=== PATIENT | male | born 1955 | race Caucasian/White ===

== ENCOUNTER 2017-08-17 10:11 | Day surgery (SDC) | payer BC ==
--- NOTE | 2017-08-17 10:03 | PCM.PREANE ---
Preanesthetic Assessment - Anesthesia/Transfusion/Family Hx Anesthesia History: Prior Anesthesia Without Reaction Family History of Anesthesia Reaction: No Transfusion History: No Prior Transfusion(s) - Review of Systems General: No Symptoms Pulmonary: No Symptoms Cardiovascular: No Symptoms Gastrointestinal: No Symptoms Neurological: No Symptoms Other: Reports: None - Physical Assessment NPO Status Date: 08/16/17 Height: 1.83 m Weight: 118.841 kg ASA Class: 2 Mental Status: Alert & Oriented x3 Airway Class: Mallampati = 2 Dentition: Reports: Normal Dentition ROM/Head Extension: Full Lungs: Clear to Auscultation, Normal Respiratory Effort Cardiovascular: Regular Rate, Regular Rhythm - Allergies Allergies/Adverse Reactions: Allergies Allergy/AdvReac Type Severity Reaction Status Date / Time No Known Allergies Allergy Verified 08/12/17 16:50 - Anesthesia Plan Pre-Op Medication Ordered: None (screening colonoscopy, DM2, denies hx of rheumatic fever) - Acknowledgements Anesthesia Type Planned: MAC Pt an Appropriate Candidate for the Planned Anesthesia: Yes Alternatives and Risks of Anesthesia Discussed w Pt/Guardian: Yes Pt/Guardian Understands and Agrees with Anesthesia Plan: Yes PreAnesthesia Questionnaire HEENT History: Reports: Hard of Hearing, Other (See Below) Other HEENT History: wears glasses, has bilateral hearing aides Cardiovascular History: Reports: High Cholesterol, Other (See Below) Other Cardiovascular History: hx of rheumatic fever Respiratory History: Reports: Sleep Apnea Other Respiratory History: uses CPAP Gastrointestinal History: Reports: Colon Polyp, GERD Genitourinary History: Reports: Other (See Below) Other Genitourinary History: takes Enalapril for kidney protection Musculoskeletal History: Reports: Gout Neurological History: Reports: None Psychiatric History: Reports: Anxiety, OCD Endocrine/Metabolic History: Reports: Diabetes, Type II, Obesity/BMI 30+ Hematologic History: Reports: None Immunologic History: Reports: None Oncologic (Cancer) History: Reports: None Dermatologic History: Reports: Other (See Below) Other Dermatologic History: has calluses on palms of hands and soles of feet - Past Surgical History GI Surgical History: Reports: Colonoscopy - SUBSTANCE USE Smoking Status *Q: Former Smoker Tobacco Use Within Last Twelve Months: No Second Hand Smoke Exposure: No Recreational Drug Use History: No - HOME MEDS Home Medications: Home Meds Aspirin [Cumings Aspirin] 81 mg PO DAILY 07/05/15 [History] Canagliflozin [Invokana] 100 mg PO QAM 07/05/15 [History] Liraglutide [Victoza] 1.2 mg SUBCUT QAM 07/05/15 [History] Omeprazole 20 mg PO DAILY 07/05/15 [History] atorvaSTATin Calcium [Atorvastatin Calcium] 80 mg PO BEDTIME 07/05/15 [History] buPROPion HCl [buPROPion HCl ER] 200 mg PO BID 07/05/15 [History] busPIRone [Buspar] 20 mg PO BID 07/05/15 [History] Enalapril [Vasotec] 5 mg PO DAILY 08/07/15 [History] FLUoxetine [PROzac] 120 mg PO DAILY 08/12/17 [History] OLANZapine [Olanzapine] 10 mg PO DAILY 08/12/17 [History] - CURRENT (IN HOUSE) MEDS Current Meds: Current Medications Lactated Ringer's (Ringers, Lactated) 1,000 mls @ 125 mls/hr IV ASDIRECTED WARREN
[~2017-08-17 10:11] MED LIST: Lactated Ringers 1,000 ML IV SCH
[2017-08-17] MEDS ORDERED: Lidocaine 2% 5 ML SDV ONE (12:02)
[2017-08-17] MEDS ORDERED: Propofol 200 MG/20 ML SDV ONE ×4 (12:02→14:02)
[2017-08-17] MEDS ORDERED: Midazolam 1 MG/ML 2 ML SDV ONE (12:03)
[2017-08-17] MEDS ORDERED: fentaNYL 100 MCG/2 ML SDV ONE ×2 (12:03→13:47)
[2017-08-17] MEDS ORDERED: Ondansetron 4 MG Tab.DIS PO PRN (13:31)
--- NOTE | 2017-08-17 13:35 | PCM.OPNOTE ---
- General Post-Op/Procedure Note Date of Surgery/Procedure: 08/17/17 Operative Procedure(s): Colonoscopy with cold transverse colon polypectomy Pre Op Diagnosis: Personal history of colon polyps. Rectal bleeding. Family history of colon cancer. Post-Op Diagnosis: Transverse colon polyp. Sigmoid diverticulosis. Anesthesia Technique: MAC (ASA II) Primary Surgeon: John Yanes Road Driver: Josesito Toribio Condition: Good Free Text/Narrative:: Dictation [id number] CPT CODE 99766
[2017-08-17] MEDS ORDERED: Lactated Ringers 1,000 ML IV SCH (13:45)
--- NOTE | 2017-08-17 14:01 | PCM48HPAN ---
Post Anesthesia Note - EVALUATION WITHIN 48HRS OF ANESTHETIC Vital Signs in Normal Range: Yes Patient Participated in Evaluation: Yes Respiratory Function Stable: Yes Airway Patent: Yes Cardiovascular Function Stable: Yes Hydration Status Stable: Yes Pain Control Satisfactory: Yes Nausea and Vomiting Control Satisfactory: Yes Mental Status Recovered: Yes Resp Rate: 21
--- NOTE | 2017-08-17 14:01 | OR ---
SURGEON: John Yanes M.D. DATE OF PROCEDURE: 08/17/2017 OPERATION PERFORMED: Colonoscopy with cold transverse colon polypectomy. ANESTHESIA: MAC. SIZE MAKER: Dr. Toribio PGY3. [employer] CLASSIFICATION: II. PREOPERATIVE DIAGNOSES: 1. Personal history of colon polyps. 2. Rectal bleeding. 3. Family history of colon cancer. POSTOPERATIVE DIAGNOSES: 1. Transverse colon polyp. 2. Sigmoid diverticulosis. DESCRIPTION OF PROCEDURE: The patient was taken to the endoscopy room and positioned on the endoscopy table in the left lateral decubitus position. Time-out was called for appropriate identification of the patient and procedure. Monitored anesthesia care was provided. The colonoscope was inserted into the rectum and advanced with significant difficulty to the cecum. Cecum was identified by internal landmarks and external pressure. The colonoscope was retroflexed in the cecum to visualize the ascending colon from below then straightened and slowly withdrawn. The cecum and ascending colon showed no tumors, polyps, diverticula, or angiodysplastic changes. The hepatic flexure was clear. One small polyp was encountered in the transverse colon and this was removed with cold biopsy forceps. The remainder of the transverse colon, splenic flexure, and descending colon showed no tumors, polyps, diverticula, or angiodysplastic changes. The sigmoid colon demonstrates a few scattered diverticula. No stricture, spasm, or bleeding was noted. No polyps were encountered in the sigmoid colon. The colonoscope was then withdrawn to the rectum and retroflexed to visualize the anal orifice from above. Again, no tumors or polyps were seen and there were no acute hemorrhoidal changes. The colonoscope was then straightened, the rectum aspirated, and the colonoscope removed. The patient tolerated the procedure well and was taken to recovery room in stable condition. SAUL / LEX /[id number]
--- NOTE | 2017-08-17 14:01 | PCM.POSTAN ---
POST ANESTHESIA ASSESSMENT - MENTAL STATUS Mental Status: Alert, Oriented - RESPIRATORY Respiratory Status: Respiratory Rate WNL, Airway Patent, O2 Saturation Stable - CARDIOVASCULAR CV Status: Pulse Rate WNL, Blood Pressure Stable - GASTROINTESTINAL GI Status: No Symptoms - POST OP HYDRATION Hydration Status: Adequate & Stable
[2017-08-17 14:36] VITALS: BP 140/81
== END 2017-08-17 14:20 | disposition home or self-care (01) ==
LOC: MW.SDS 10:11
PROVIDERS: ATTEND Surgery
DX: D12.3 Benign neoplasm of transverse colon (principal); K57.30 Diverticulosis of large intestine without perforation or abscess without bleeding; F41.9 Anxiety disorder, unspecified; F32.9 Major depressive disorder, single episode, unspecified; E11.9 Type 2 diabetes mellitus without complications; E78.5 Hyperlipidemia, unspecified; K21.9 Gastro-esophageal reflux disease without esophagitis; M10.9 Gout, unspecified; I10 Essential (primary) hypertension; E66.9 Obesity, unspecified; G47.33 Obstructive sleep apnea (adult) (pediatric); E78.00 Pure hypercholesterolemia, unspecified; Z86.010 Personal history of colon polyps; Z80.0 Family history of malignant neoplasm of digestive organs; Z79.899 Other long term (current) drug therapy; Z98.890 Other specified postprocedural states; Z87.891 Personal history of nicotine dependence; Z68.35 Body mass index [BMI] 35.0-35.9, adult; Z99.89 Dependence on other enabling machines and devices; Z79.82 Long term (current) use of aspirin; Z79.4 Long term (current) use of insulin
CPT/HCPCS: 45380; J2250; J3010; J7120; 82962; 88305; J2704

== ENCOUNTER 2019-08-01 08:52 | Day surgery (SDC) | payer BC ==
[~2019-08-01 08:52] MED LIST changes: -Lactated Ringers 1,000 ML IV SCH; +Lidocaine 2% 5 ML SDV ONE; +Propofol 200 MG/20 ML SDV ONE; +fentaNYL 100 MCG/2 ML SDV ONE
--- NOTE | 2019-08-01 09:22 | PCM.PREANE ---
Preanesthetic Assessment - Anesthesia/Transfusion/Family Hx Anesthesia History: Prior Anesthesia Without Reaction Family History of Anesthesia Reaction: No Transfusion History: No Prior Transfusion(s) - Review of Systems General: No Symptoms Pulmonary: Other (wendy uses cpap) Cardiovascular: No Symptoms Gastrointestinal: Constipation Neurological: Other (neuropathy) - Physical Assessment NPO Status Date: 07/31/19 Vital Signs: Last Vital Signs Temp 97.0 F 08/01/19 09:14 Pulse 88 08/01/19 09:14 Resp 14 08/01/19 09:14 BP 116/73 08/01/19 09:14 Pulse Ox 96 08/01/19 09:14 Height: 6 ft Weight: 98.883 kg ASA Class: 3 Airway Class: Mallampati = 2 Dentition: Reports: Normal Dentition ROM/Head Extension: Full Lungs: Clear to Auscultation, Normal Respiratory Effort Cardiovascular: Regular Rate, Regular Rhythm - Lab Values: Laboratory Last Values POC Glucose 116 mg/dL (60-110) H 08/01/19 09:06 - Allergies Allergies/Adverse Reactions: Allergies Allergy/AdvReac Type Severity Reaction Status Date / Time No Known Allergies Allergy Verified 07/26/19 14:24 - Blood Blood Available: No - Anesthesia Plan Pre-Op Medication Ordered: None - Acknowledgements Anesthesia Type Planned: General Anesthesia Pt an Appropriate Candidate for the Planned Anesthesia: Yes Alternatives and Risks of Anesthesia Discussed w Pt/Guardian: Yes Pt/Guardian Understands and Agrees with Anesthesia Plan: Yes Additional Comments: PMH: dm2- am [id number], anx, CKD, gerd, hyperuricemia, [place], peripheral neuropathy PLAN: tiva PreAnesthesia Questionnaire HEENT History: Reports: Hard of Hearing, Other (See Below) Other HEENT History: wears glasses, has bilateral hearing aides Cardiovascular History: Reports: High Cholesterol, Other (See Below) Other Cardiovascular History: hx of rheumatic fever, Respiratory History: Reports: Sleep Apnea Other Respiratory History: uses CPAP Gastrointestinal History: Reports: Colon Polyp, GERD Genitourinary History: Reports: Other (See Below) Other Genitourinary History: takes Enalapril for kidney protection Musculoskeletal History: Reports: Gout Neurological History: Reports: None Psychiatric History: Reports: Anxiety, OCD Endocrine/Metabolic History: Reports: Diabetes, Type II Hematologic History: Reports: None Immunologic History: Reports: None Oncologic (Cancer) History: Reports: None Dermatologic History: Reports: Other (See Below) Other Dermatologic History: hyperkeratosis - Past Surgical History Head Surgeries/Procedures: Reports: None Cardiovascular Surgical History: Reports: None Respiratory Surgical History: Reports: None GI Surgical History: Reports: Colonoscopy Endocrine Surgical History: Reports: None Neurological Surgical History: Reports: None Musculoskeletal Surgical History: Reports: None Oncologic Surgical History: Reports: None Dermatological Surgical History: Reports: None - SUBSTANCE USE Smoking Status *Q: Former Smoker Tobacco Use Within Last Twelve Months: No - HOME MEDS Home Medications: Home Meds Aspirin [Richardson Aspirin EC] 81 mg PO DAILY 07/05/15 [History] Canagliflozin [Invokana] 100 mg PO QAM 07/05/15 [History] atorvaSTATin Calcium [Atorvastatin Calcium] 80 mg PO BEDTIME 07/05/15 [History] buPROPion HCL [buPROPion HCl ER] 200 mg PO BID 07/05/15 [History] busPIRone [Buspar] 20 mg PO BID 07/05/15 [History] Enalapril [Vasotec] 5 mg PO DAILY 08/07/15 [History] FLUoxetine [PROzac] 120 mg PO DAILY 08/12/17 [History] OLANZapine [Olanzapine] 10 mg PO BEDTIME 08/12/17 [History] [place]-3/DHA/Epa/Fish Oil [Fish Oil 1,000 mg Softgel] 1,000 mg PO DAILY 07/26/19 [History] Omeprazole 20 mg PO DAILY 07/26/19 [History] Urea [Urea 40% Crm] 1 applic TOP ASDIRECTED PRN 07/26/19 [History] - CURRENT (IN HOUSE) MEDS Current Meds: Current Medications Cefoxitin Sodium 2 gm/ Premix 50 mls @ 100 mls/hr IV ONETIME ONE Stop: 08/01/19 17:07 Lactated Ringer's (Ringers, Lactated) 1,000 mls @ 125 mls/hr IV ASDIRECTED WARREN Discontinued Medications Fentanyl (Sublimaze) Confirm Administered Dose 100 mcg .ROUTE .STK-MED ONE Stop: 08/01/19 08:17 Lidocaine (Xylocaine-Mpf 2%) Confirm Administered Dose 5 ml .ROUTE .STK-MED ONE Stop: 08/01/19 08:17 Propofol (Diprivan 20 Ml) Confirm Administered Dose 400 mg .ROUTE .STK-MED ONE Stop: 08/01/19 08:17
[2019-08-01] MEDS ORDERED: cefOXitin 100 ML ONE (09:41)
[2019-08-01] MEDS ORDERED: Glycopyrrolate 0.2 MG/ML SDV ONE ×2 (09:46→09:53)
[2019-08-01] MEDS ORDERED: ePHEDrine 50 MG/ML SDV ONE (09:49)
[2019-08-01] MEDS ORDERED: Vasopressin 20 Units/1 ML MDV ONE (09:57)
[2019-08-01] MEDS ORDERED: Propofol 200 MG/20 ML SDV ONE (10:22)
--- NOTE | 2019-08-01 10:50 | PCM.OPNOTE ---
- General Post-Op/Procedure Note Date of Surgery/Procedure: 08/01/19 Operative Procedure(s): Colonoscopy with cold transverse colon and rectal polypectomies. Pre Op Diagnosis: Change in bowel habits. Family history of colon cancer. Personal history of colon polyps. Post-Op Diagnosis: Transverse colon and rectal polyps. Sigmoid diverticulosis. Anesthesia Technique: MAC (ASA III) Primary Surgeon: John Yanes Condition: Good Free Text/Narrative:: DICTATION [id number] CPT CODE 15688
[2019-08-01] MEDS ORDERED: Lactated Ringers 1,000 ML IV SCH ×2 (11:00→16:38)
[2019-08-01 11:25] VITALS: BP 106/68; PULSE 80
--- NOTE | 2019-08-01 11:34 | OR ---
SURGEON: John Yanes M.D. DATE OF PROCEDURE: 08/01/2019 OPERATION PERFORMED: Colonoscopy with cold transverse colon and cold rectal polypectomy. PRIMARY SURGEON: John Yanes MD. ANESTHESIA: MAC. ASA CLASSIFICATION: III. PREOPERATIVE DIAGNOSES: 1. Change in bowel habits. 2. Family history of colon cancer. 3. Personal history of colon polyps. POSTOPERATIVE DIAGNOSES: 1. Transverse colon and rectal polyps. 2. Sigmoid diverticulosis. DESCRIPTION OF PROCEDURE: The patient was taken to the endoscopy room and positioned on the endoscopy table in the left lateral decubitus position. Time-out was called for appropriate identification of the patient and procedure. Monitored anesthesia care was provided. The colonoscope was inserted into the rectum and advanced with significant difficulty to the cecum. I was not able to retroflex the colonoscope in the cecum. The cecum and ascending colon showed no tumors, polyps, diverticula, or angiodysplastic changes. One small polyp was encountered in the transverse colon and removed with the cold biopsy forceps. The remainder of the transverse colon, splenic flexure, and descending colon showed no tumors, polyps, diverticula, or angiodysplastic changes. Sigmoid colon itself demonstrates moderate diverticular disease. No stricture, spasm, or bleeding was noted. The colonoscope was withdrawn to the rectum where a second polyp was identified and also removed with the cold biopsy forceps. The colonoscope was retroflexed to visualize the anal orifice from above. No tumors or polyps were seen and there are no acute hemorrhoidal changes. The colonoscope was then straightened, the rectum aspirated, and the colonoscope removed. The patient tolerated the procedure well and was taken to recovery room in stable condition. SAUL / LEX /[id number]
--- NOTE | 2019-08-01 13:10 | PCM.POSTAN ---
POST ANESTHESIA ASSESSMENT - MENTAL STATUS Mental Status: Alert, Oriented - VITAL SIGNS Vital Signs: Last Vital Signs Temp 98.6 F 08/01/19 10:46 Pulse 80 08/01/19 11:15 Resp 14 08/01/19 11:15 BP 106/68 08/01/19 11:15 Pulse Ox 94 L 08/01/19 11:15 - RESPIRATORY Respiratory Status: Respiratory Rate WNL, Airway Patent, O2 Saturation Stable - CARDIOVASCULAR CV Status: Pulse Rate WNL, Blood Pressure Stable - GASTROINTESTINAL GI Status: No Symptoms - POST OP HYDRATION Hydration Status: Adequate & Stable
--- NOTE | 2019-08-01 13:10 | PCM48HPAN ---
Post Anesthesia Note - EVALUATION WITHIN 48HRS OF ANESTHETIC Vital Signs in Normal Range: Yes Patient Participated in Evaluation: Yes Respiratory Function Stable: Yes Airway Patent: Yes Cardiovascular Function Stable: Yes Hydration Status Stable: Yes Pain Control Satisfactory: Yes Nausea and Vomiting Control Satisfactory: Yes Mental Status Recovered: Yes Vital Signs: Last Vital Signs Temp 98.6 F 08/01/19 10:46 Pulse 80 08/01/19 11:15 Resp 14 08/01/19 11:15 BP 106/68 08/01/19 11:15 Pulse Ox 94 L 08/01/19 11:15
[2019-08-01] MEDS ORDERED: cefOXitin 2 GM in Premix Bag 1 BAG IV ONE (16:38)
== END 2019-08-01 11:35 | disposition home or self-care (01) ==
LOC: MW.SDS 08:52
PROVIDERS: ATTEND Surgery
DX: D12.8 Benign neoplasm of rectum (principal); K57.30 Diverticulosis of large intestine without perforation or abscess without bleeding; F41.9 Anxiety disorder, unspecified; F32.9 Major depressive disorder, single episode, unspecified; K21.9 Gastro-esophageal reflux disease without esophagitis; E78.5 Hyperlipidemia, unspecified; G47.33 Obstructive sleep apnea (adult) (pediatric); I12.9 Hypertensive chronic kidney disease with stage 1 through stage 4 chronic kidney disease, or unspecified chronic kidney disease; E11.22 Type 2 diabetes mellitus with diabetic chronic kidney disease; N18.9 Chronic kidney disease, unspecified; E66.9 Obesity, unspecified; E11.40 Type 2 diabetes mellitus with diabetic neuropathy, unspecified; Z80.0 Family history of malignant neoplasm of digestive organs; Z86.010 Personal history of colon polyps; Z98.890 Other specified postprocedural states; Z99.89 Dependence on other enabling machines and devices; Z79.899 Other long term (current) drug therapy; Z79.82 Long term (current) use of aspirin; Z87.891 Personal history of nicotine dependence
CPT/HCPCS: 45380; 82962; J0694; J2001; J2704; J3010; J3490; 88305

== ENCOUNTER 2020-07-31 18:46 | Emergency (ER) | payer BC ==
[2020-07-31] MEDS ORDERED: Sodium Chloride 0.9% 10 ML Syringe FLUSH PRN (19:27)
[2020-07-31] MEDS ORDERED: Sodium Chloride 0.9% 2.5 ML Syringe FLUSH PRN (19:27)
[2020-07-31] MEDS ORDERED: diphenhydrAMINE 50 MG/ML SDV IVPUSH ONE (19:27)
[2020-07-31] MEDS ORDERED: methylPREDNISolone Sodium Succinate 125 MG/2 ML SDV IVPUSH ONE (19:27)
--- NOTE | 2020-07-31 19:41 | EDM.PDOC ---
ED HPI GENERAL MEDICAL PROBLEM - General Chief Complaint: Skin Complaint Stated Complaint: RASH (UNK AREA) Time Seen by Provider: 07/31/20 18:49 Source of Information: Reports: Patient History Limitations: Reports: No Limitations - History of Present Illness INITIAL COMMENTS - FREE TEXT/NARRATIVE: HISTORY AND PHYSICAL: History of present illness: Patient is a 65-year-old male who presents to the ED today with concern of sudden onset of an itchy rash in his groin that began just a few hours prior to arrival to the emergency room. Patient states that he did have a CT scan ye sterday with contrast but this was IV in his right antecubital space. Patient states that he is following along with a contract preparer and is "getting his heart checked out ". Patient states that today he began having itchiness in his groin region and started noticing few hours ago that the area was red. Patient denies any pain associated with the rash and states that it is just itchy. Denies any other associative symptoms. Patient denies fever, chills, chest pain, shortness of breath, or cough. Denies headache, neck stiff ness, change in vision, syncope, or near syncope. Denies nausea, vomiting, abdominal pain, diarrhea, constipation, or dysuria. Has not noted any blood in urine or stool. Patient has been eating and drinking appropriately. Review of systems: As per history of present illness and below otherwise all systems reviewed and negative. Past medical history: As per history of present illness and as reviewed below otherwise noncontributory. Surgical history: As per history of present illness and as reviewed below otherwise noncontributory. Social history: See social history for further information Family history: As per history of present illness and as reviewed below otherwise noncontributory. Physical exam: General: Patient is alert, oriented, and in no acute distress. Patient sitting comfortably on exam table. Stable and reviewed by me HEENT: Atraumatic, normocephalic, pupils equal and reactive bilaterally, negative for conjunctival pallor or scleral icterus, mucous membranes moist, TMs normal bilaterally, throat clear, neck supple, nontender, trachea midline. No drooling or trismus noted. No meningeal signs. No hot potato voice noted. Lungs: Clear to auscultation, breath sounds equal bilaterally, chest nontender. Heart: S1S2, regular rate and rhythm without overt murmur Abdomen: Otherwise, soft, nondistended, nontender. Negative for masses or hepatosplenomegaly. Negative for costovertebral tenderness. Pelvis: Stable nontender. Genitourinary: [employer] Chief Scientist at bedside, Rick Field MD. There is an erythematous macular rash of the groin resembling allergic dermatitis vs candidal dermatitis that encompasses the scrotum, intertriginous region of bilateral groin areas that patient scratches on exam. No pain to palpation of the rash, no increase in warmth of the rash, to testicular/scrotal pain, no penile drainage, no crepitus to palpation, no edema, no ecchymosis, no drainage noted. Rectal: Deferred. Skin: There is an erythematous macular rash of the chest. Otherwise, Intact, warm, dry. No lesions or rashes noted. Extremities: Atraumatic, negative for cords or calf pain. Neurovascular unremarkable. Neuro: Awake, alert, oriented. Cranial nerves II through XII unremarkable. Cerebellum unremarkable. Motor and sensory unremarkable throughout. Exam nonfocal. Notes: Dr. Field directly involved in Patient care. Signs and symptoms that were prompt return to the ED thoroughly discussed with patient. Discussed importance for follow-up with a primary care provider. Voices understanding and is agreeable to plan of care. Denies any further questions or concerns at this time. Diagnostics: None Therapeutics: None Prescription: Nystatin powder Impression: Dermatitis, possible candidal vs allergic Plan: 1. Take medication as prescribed. Also take [id number] Benadryl as directed and as discussed. 2. Encourage you to switch to dye free, scented free laundry detergent. 3. Follow-up with your primary care provider as discussed. Return to the ED as needed and also discussed. Definitive disposition and diagnosis as appropriate pending reevaluation and review of above. Groin Pain Score (Numeric/FACES): 1 - Related Data Allergies Allergy/AdvReac Type Severity Reaction Status Date / Time No Known Allergies Allergy Verified 07/31/20 18:58 Home Meds: Home Meds Aspirin [[place] Aspirin EC] 81 mg PO DAILY 07/05/15 [History] Canagliflozin [Invokana] 100 mg PO QAM 07/05/15 [History] atorvaSTATin Calcium [Atorvastatin Calcium] 80 mg PO BEDTIME 07/05/15 [History] buPROPion HCL [buPROPion HCl ER] 200 mg PO BID 07/05/15 [History] busPIRone [Buspar] 20 mg PO BID 07/05/15 [History] Enalapril [Vasotec] 5 mg PO DAILY 08/07/15 [History] FLUoxetine [PROzac] 120 mg PO DAILY 08/12/17 [History] OLANZapine [Olanzapine] 10 mg PO BEDTIME 08/12/17 [History] [place]-3/DHA/Epa/Fish Oil [Fish Oil 1,000 mg Softgel] 1,000 mg PO DAILY 07/26/19 [History] Omeprazole 20 mg PO DAILY 07/26/19 [History] Liraglutide [Victoza] 07/31/20 [History] Nystatin 30 gm TP BID 7 Days #1 bottle 07/31/20 [Rx] Past Medical History HEENT History: Reports: Hard of Hearing, Other (See Below) Other HEENT History: wears glasses, has bilateral hearing aides Cardiovascular History: Reports: High Cholesterol, Other (See Below) Other Cardiovascular History: hx of rheumatic fever, Respiratory History: Reports: Sleep Apnea Other Respiratory History: uses CPAP Gastrointestinal History: Reports: Colon Polyp, GERD Genitourinary History: Reports: Other (See Below) Other Genitourinary History: takes Enalapril for kidney protection Musculoskeletal History: Reports: Gout Neurological History: Reports: None Psychiatric History: Reports: Anxiety, OCD Endocrine/Metabolic History: Reports: Diabetes, Type II Hematologic History: Reports: None Immunologic History: Reports: None Oncologic (Cancer) History: Reports: None Dermatologic History: Reports: Other (See Below) Other Dermatologic History: hyperkeratosis - Infectious Disease History Infectious Disease History: Reports: Chicken Pox, Measles - Past Surgical History Head Surgeries/Procedures: Reports: None Cardiovascular Surgical History: Reports: None Respiratory Surgical History: Reports: None GI Surgical History: Reports: Colonoscopy Endocrine Surgical History: Reports: None Neurological Surgical History: Reports: None Musculoskeletal Surgical History: Reports: None Oncologic Surgical History: Reports: None Dermatological Surgical History: Reports: None Social & Family History - Family History Family Medical History: No Pertinent Family History - Tobacco Use Tobacco Use Status *Q: Never Tobacco User - Caffeine Use Caffeine Use: Reports: Coffee - Recreational Drug Use Recreational Drug Use: No ED ROS GENERAL - Review of Systems Review Of Systems: Comprehensive ROS is negative, except as noted in HPI. ED EXAM, SKIN/RASH Exam: See Below (see dictation) Course - Vital Signs Last Recorded V/S: Last Vital Signs Temp 97.2 F 07/31/20 18:56 Pulse 58 L 07/31/20 19:40 Resp 18 07/31/20 18:56 BP 106/46 L 07/31/20 19:40 Pulse Ox 96 07/31/20 19:40 - Orders/Labs/Meds Orders: Active Orders 24 hr Category Date Time Status Saline Lock Insert [OM.PC] Stat Oth 07/31/20 19:27 Ordered Meds: Medications Discontinued Medications Generic Name Dose Route Start Last Admin Trade Name Freq PRN Reason Stop Dose Admin Diphenhydramine HCl 50 mg 07/31/20 19:27 07/31/20 19:42 Benadryl IVPUSH 07/31/20 19:28 Not Given ONETIME ONE Methylprednisolone Sodium Succinate 125 mg 07/31/20 19:27 07/31/20 19:42 Solu-Medrol IVPUSH 07/31/20 19:28 Not Given ONETIME ONE Sodium Chloride 10 ml 07/31/20 19:27 Saline Flush FLUSH ASDIRECTED PRN Keep Vein Open Sodium Chloride 2.5 ml 07/31/20 19:27 Saline Flush FLUSH ASDIRECTED PRN Keep Vein Open Departure - Departure Time of Disposition: 19:39 Disposition: Home, Self-Care 01 Clinical Impression: Dermatitis - Discharge Information Prescriptions: Nystatin 30 gm TP BID 7 Days #1 bottle Instructions: Genital Yeast Infection, Male, Paronychia, [id number] Referrals: Nazia Dominguez MD [Primary Care Provider] - Forms: ED Department Discharge Additional Instructions: The following information is given to patients seen in the emergency department who are being discharged to home. This information is to outline your options for follow-up care. We provide all patients seen in our emergency department with a follow-up referral. The need for follow-up, as well as the timing and circumstances, are variable depending upon the specifics of your emergency department visit. If you don't have a primary care physician on staff, we will provide you with a referral. We always advise you to contact your personal physician following an emergency department visit to inform them of the circumstance of the visit and for follow-up with them and/or the need for any referrals to a consulting specialist. The emergency department will also refer you to a specialist when appropriate. This referral assures that you have the opportunity for follow-up care with a specialist. All of these measure are taken in an effort to provide you with optimal care, which includes your follow-up. Under all circumstances we always encourage you to contact your private physician who remains a resource for coordinating your care. When calling for follow-up care, please make the office aware that this follow-up is from your recent emergency room visit. If for any reason you are refused follow-up, please contact the [facility] Emergency Department at and asked to speak to the emergency department charge nurse. [facility] [address] [place] [id number] [id number] 1. Take medication as prescribed. Also take [id number] Benadryl as directed and as discussed. 2. Encourage you to switch to dye free, scented free laundry detergent. 3. Follow-up with your primary care provider as discussed. Return to the ED as needed and also discussed. Sepsis Event Note (ED) - Evaluation Sepsis Screening Result: No Definite Risk - Focused Exam Vital Signs: Vital Signs Temp Pulse Resp BP Pulse Ox 07/31/20 19:40 58 L 106/46 L 96 07/31/20 18:56 97.2 F 54 L 18 110/62 96 - My Orders Last 24 Hours: My Active Orders 07/31/20 19:27 Saline Lock Insert [OM.PC] Stat - Assessment/Plan Last 24 Hours: My Active Orders 07/31/20 19:27 Saline Lock Insert [OM.PC] Stat
[2020-07-31 19:52] VITALS: BP 106/46; PULSE 58
== END 2020-07-31 19:43 | disposition home or self-care (01) ==
LOC: MW.ED 18:46
DX: L30.9 Dermatitis, unspecified (principal); E78.00 Pure hypercholesterolemia, unspecified; K21.9 Gastro-esophageal reflux disease without esophagitis; M10.9 Gout, unspecified; E11.9 Type 2 diabetes mellitus without complications; Z79.82 Long term (current) use of aspirin; Z79.84 Long term (current) use of oral hypoglycemic drugs; Z79.899 Other long term (current) drug therapy
CPT/HCPCS: 99282; 99283

== ENCOUNTER 2021-05-24 12:17 | Emergency (ER) | payer BC ==
--- NOTE | 2021-05-24 12:28 | EDM.PDOC ---
ED HPI GENERAL MEDICAL PROBLEM - General Chief Complaint: Trauma Stated Complaint: HEAD INJURY Time Seen by Provider: 05/24/21 12:18 Source of Information: Reports: Patient History Limitations: Reports: No Limitations - History of Present Illness INITIAL COMMENTS - FREE TEXT/NARRATIVE: 65-year-old male presents for closed head injury. Patient slipped on ice and fell hitting the back of his head roughly 15 minutes prior to arrival. He denies loss of consciousness but does note dizziness after the fall. Patient does note that he is on Effient blood thinner. He has been ambulatory after the fall and does not complain of pain. head Pain Score (Numeric/FACES): 6 - Related Data Allergies Allergy/AdvReac Type Severity Reaction Status Date / Time Iodinated Contrast Media Allergy Rash Verified 05/24/21 12:40 Home Meds: Home Meds Aspirin [[place] Aspirin EC] 81 mg PO DAILY 07/05/15 [History] buPROPion HCL [buPROPion HCl ER] 200 mg PO BID 07/05/15 [History] busPIRone [Buspar] 20 mg PO BID 07/05/15 [History] Enalapril [Vasotec] 5 mg PO DAILY 08/07/15 [History] FLUoxetine [PROzac] 120 mg PO DAILY 08/12/17 [History] OLANZapine [Olanzapine] 10 mg PO BEDTIME 08/12/17 [History] Nystatin 30 gm TP BID 7 Days #1 bottle 07/31/20 [Rx] Empagliflozin [Jardiance] 10 mg PO DAILY 05/24/21 [History] Ezetimibe 10 mg PO DAILY 05/24/21 [History] Prasugrel HCl [Effient] 10 mg PO DAILY 05/24/21 [History] atorvaSTATin Calcium [Atorvastatin Calcium] 80 mg PO DAILY 05/24/21 [History] Past Medical History HEENT History: Reports: Hard of Hearing, Other (See Below) Other HEENT History: wears glasses, has bilateral hearing aides Cardiovascular History: Reports: High Cholesterol, Other (See Below) Other Cardiovascular History: hx of rheumatic fever, Respiratory History: Reports: Sleep Apnea Other Respiratory History: uses CPAP Gastrointestinal History: Reports: Colon Polyp, GERD Genitourinary History: Reports: Other (See Below) Other Genitourinary History: takes Enalapril for kidney protection Musculoskeletal History: Reports: Gout Neurological History: Reports: None Psychiatric History: Reports: Anxiety, OCD Endocrine/Metabolic History: Reports: Diabetes, Type II Hematologic History: Reports: None Immunologic History: Reports: None Oncologic (Cancer) History: Reports: None Dermatologic History: Reports: Other (See Below) Other Dermatologic History: hyperkeratosis - Infectious Disease History Infectious Disease History: Reports: Chicken Pox, Measles - Past Surgical History Head Surgeries/Procedures: Reports: None Cardiovascular Surgical History: Reports: None Respiratory Surgical History: Reports: None GI Surgical History: Reports: Colonoscopy Endocrine Surgical History: Reports: None Neurological Surgical History: Reports: None Musculoskeletal Surgical History: Reports: None Oncologic Surgical History: Reports: None Dermatological Surgical History: Reports: None Social & Family History - Family History Family Medical History: No Pertinent Family History - Caffeine Use Caffeine Use: Reports: Coffee Review of Systems - Review of Systems Review Of Systems: Comprehensive ROS is negative, except as noted in HPI. ED EXAM, GENERAL - Physical Exam Exam: See Below Exam Limited By: No Limitations General Appearance: Alert, WD/WN, No Apparent Distress Eye Exam: Bilateral Eye: EOMI, PERRL Ears: Hearing Grossly Normal Throat/Mouth: Normal Voice, No Airway Compromise Head: Normocephalic, Other (Left occipital hematoma) Neck: Normal Inspection, Non-Tender Respiratory/Chest: No Respiratory Distress, Lungs Clear, Normal Breath Sounds, No Accessory Muscle Use Cardiovascular: Normal Peripheral Pulses, Regular Rate, Rhythm Extremities: Normal Inspection Neurological: Normal Cognition, Normal Gait Psychiatric: Normal Affect, Normal Mood Skin Exam: Warm, Dry, Intact, Normal Color Course - Vital Signs Last Recorded V/S: Last Vital Signs Temp 97.4 F 05/24/21 12:42 Pulse 68 05/24/21 13:15 Resp 16 05/24/21 12:42 BP 127/67 05/24/21 13:15 Pulse Ox 95 05/24/21 13:15 - Orders/Labs/Meds Labs: Laboratory Tests 05/24/21 05/24/21 05/24/21 Range/Units 12:22 12:22 12:22 WBC 9.83 (4.0-11.0) K/uL RBC 4.61 (4.50-5.90) M/uL Hgb 13.9 (13.0-17.0) g/dL Hct 42.5 (38.0-50.0) % MCV 92.2 (80.0-98.0) fL MCH 30.2 (27.0-32.0) pg MCHC 32.7 (31.0-37.0) g/dL RDW Std Deviation 42.3 (28.0-62.0) fl RDW Coeff of Anil 13 (11.0-15.0) % Plt Count 253 (150-400) K/uL MPV 9.30 (7.40-12.00) fL Neut % (Auto) 64.4 (48.0-80.0) % Lymph % (Auto) 25.4 (16.0-40.0) % [place] % (Auto) 7.9 (0.0-15.0) % Eos % (Auto) 2.1 (0.0-7.0) % Baso % (Auto) 0.2 (0.0-1.5) % Neut # (Auto) 6.3 H (1.4-5.7) K/uL Lymph # (Auto) 2.5 H (0.6-2.4) K/uL [place] # (Auto) 0.8 (0.0-0.8) K/uL Eos # (Auto) 0.2 (0.0-0.7) K/uL Baso # (Auto) 0.0 (0.0-0.1) K/uL Nucleated RBC % 0.2 /100WBC Nucleated RBCs # 0 K/uL INR 0.98 APTT 22.7 (18.6-31.3) SEC Sodium 140 (136-148) mmol/L Potassium 4.0 (3.5-5.1) mmol/L Chloride 104 (98-107) mmol/L Carbon Dioxide 25.2 (21.0-32.0) mmol/L BUN 23 H (7.0-18.0) mg/dL Creatinine 1.5 H (0.8-1.3) mg/dL Est Cr Clr Drug Dosing TNP Estimated GFR (MDRD) 47.1 ml/min Glucose 142 H (74-106) mg/dL Calcium 8.8 (8.5-10.1) mg/dL Total Bilirubin 0.3 (0.2-1.0) mg/dL AST 53 H (15-37) IU/L ALT 116 H (14-63) IU/L Alkaline Phosphatase 118 H (46-116) U/L Total Protein 6.5 (6.4-8.2) g/dL Albumin 3.4 (3.4-5.0) g/dL Globulin 3.1 (2.6-4.0) g/dL Albumin/Globulin Ratio 1.1 (0.9-1.6) - Re-Assessments/Exams Free Text/Narrative Re-Assessment/Exam: 05/24/21 12:27 We will get basic labs. Will get head CT and C-spine CT considering blood thinner use. 05/24/21 13:22 Imaging and labs are all unremarkable. Will discharge patient home. Departure - Departure Time of Disposition: 13:22 Disposition: Home, Self-Care 01 Condition: Good Clinical Impression: Hematoma CHI (closed head injury) Qualifiers: Encounter type: initial encounter Qualified Code(s): S09.90XA - Unspecified injury of head, initial encounter - Discharge Information Instructions: Head Injury, Adult Forms: ED Department Discharge Additional Instructions: Your head CT is normal. You have no evidence of bleeding in the brain. Please follow-up with your primary care physician. The following information is given to patients seen in the emergency department who are being discharged to home. This information is to outline your options for follow-up care. We provide all patients seen in our emergency department with a follow-up referral. The need for follow-up, as well as the timing and circumstances, are variable depending upon the specifics of your emergency department visit. If you don't have a primary care physician on staff, we will provide you with a referral. We always advise you to contact your personal physician following an emergency department visit to inform them of the circumstance of the visit and for follow-up with them and/or the need for any referrals to a consulting specialist. The emergency department will also refer you to a specialist when appropriate. This referral assures that you have the opportunity for follow-up care with a specialist. All of these measure are taken in an effort to provide you with optimal care, which includes your follow-up. Under all circumstances we always encourage you to contact your private physician who remains a resource for coordinating your care. When calling for follow-up care, please make the office aware that this follow-up is from your recent emergency room visit. If for any reason you are refused follow-up, please contact the [facility] Emergency Department at and asked to speak to the emergency department charge nurse. Please follow up with your primary care physician. If you do not have a primary care physician, see below: [facility] [address] [place] [id number] [facility] [address] [place] [id number] [facility] [address] [place] [id number] Sepsis Event Note (ED) - Focused Exam Vital Signs: Vital Signs Temp Pulse Resp BP Pulse Ox 05/24/21 13:15 68 127/67 95 05/24/21 12:58 71 133/70 92 L 05/24/21 12:45 70 128/70 96 05/24/21 12:42 97.4 F 71 16 128/70 97
[2021-05-24 12:51] LABS: BLOOD UREA NITROGEN,BUN 23 mg/dL (7.0-18.0); CARBON DIOXIDE,CO2 25.2 mmol/L (21.0-32.0); CHLORIDE,CL 104 mmol/L (98-107); GLUCOSE RANDOM 142 mg/dL (74-106)
[2021-05-24 12:54] LABS: SODIUM,NA 140 mmol/L (136-148)
--- NOTE | 2021-05-24 13:07 | CT ---
Clinical INDICATION: Fall. On anticoagulants. TECHNIQUE: Axial noncontrast CT cuts were performed from the skull base to the vertex. FINDINGS: There is a left parietal scalp hematoma that measures approximately 6.5 x 1.5 cm. The act calvarium is intact. There is no intracranial mass, hemorrhage, infarction or contusion. There is no midline shift or transtentorial herniation. The visualized paranasal sinuses orbits appear normal. IMPRESSION: Left parietal scalp hematoma with no other traumatic abnormality identified. Please note that all CT scans at this facility use dose modulation, iterative reconstruction, and/or weight-based dosing when appropriate to reduce radiation dose to as low as reasonably achievable. Dictated by Guillaume Reed MD @ 05/24/2021 1:05:10 PM (Electronically Signed)
--- NOTE | 2021-05-24 13:11 | CT ---
Clinical INDICATION: Fall. Elderly on anticoagulants. TECHNIQUE: Axial CT cuts were performed from the skullbase to the upper thoracic spine. The images were formatted in the sagittal, axial and coronal planes. There is no fracture or dislocation. There is mild multilevel intervertebral disc space narrowing with small multilevel marginal osteophytes. The craniocervical and cervicothoracic junctions are normally aligned. IMPRESSION: Negative for fracture or dislocation. Overall mild cervical spondylosis. Please note that all CT scans at this facility use dose modulation, iterative reconstruction, and/or weight-based dosing when appropriate to reduce radiation dose to as low as reasonably achievable. Dictated by Guillaume Reed MD @ 05/24/2021 1:09:59 PM (Electronically Signed)
[2021-05-24 13:17] VITALS: BP 127/67; PULSE 68
== END 2021-05-24 13:34 | disposition home or self-care (01) ==
LOC: MW.ED 12:17
DX: S00.83XA Contusion of other part of head, initial encounter (principal); E11.9 Type 2 diabetes mellitus without complications; E78.00 Pure hypercholesterolemia, unspecified; K21.9 Gastro-esophageal reflux disease without esophagitis; M10.9 Gout, unspecified; Z91.041 Radiographic dye allergy status; Z79.82 Long term (current) use of aspirin; Z79.899 Other long term (current) drug therapy; W00.0XXA Fall on same level due to ice and snow, initial encounter
CPT/HCPCS: 36415; 70450; 70450-26; 72125; 72125-26; 80053; 85025; 85610; 85730; 99283; 99284-25

== ENCOUNTER 2021-06-24 12:58 | Emergency (ER) | payer BC ==
[2021-06-24 14:58] VITALS: BP 136/80; PULSE 92
== END 2021-06-24 13:50 | disposition home or self-care (01) ==
LOC: MW.ED 12:58
DX: S00.03XA Contusion of scalp, initial encounter (principal); E78.00 Pure hypercholesterolemia, unspecified; M10.9 Gout, unspecified; E11.9 Type 2 diabetes mellitus without complications; Z91.041 Radiographic dye allergy status; Z79.82 Long term (current) use of aspirin; Z79.899 Other long term (current) drug therapy; W01.198A Fall on same level from slipping, tripping and stumbling with subsequent striking against other object, initial encounter
CPT/HCPCS: 70450; 70450-26; 99283-25

== ENCOUNTER 2021-08-14 21:37 | Emergency (ER) | payer BC, MEDICARE ==
[2021-08-15 01:38] VITALS: BP 113/58; PULSE 80
== END 2021-08-14 23:20 | disposition home or self-care (01) ==
LOC: MW.ED 21:37
DX: S00.83XA Contusion of other part of head, initial encounter (principal); S40.021A Contusion of right upper arm, initial encounter; E11.9 Type 2 diabetes mellitus without complications; F41.9 Anxiety disorder, unspecified; E78.00 Pure hypercholesterolemia, unspecified; M10.9 Gout, unspecified; F42.9 Obsessive-compulsive disorder, unspecified; K21.9 Gastro-esophageal reflux disease without esophagitis; Z79.899 Other long term (current) drug therapy; Z91.041 Radiographic dye allergy status; Z79.02 Long term (current) use of antithrombotics/antiplatelets; W00.0XXA Fall on same level due to ice and snow, initial encounter
CPT/HCPCS: 70450; 70450-26; 99283; 99283-25